=== PATIENT | female | born 1945 | race Hispanic/Latino ===

== ENCOUNTER 2018-12-23 12:41 | Outpatient (CLI) | payer MEDICARE, BC ==
--- NOTE | 2018-12-23 13:49 | Mammography Report ---
BONE DENSITY STUDY: DEFINITIONS: BMD = Bone Mineral Density T-score = BMD related to mean peak bone mass of young adult (mean expressed in Standard Deviation) Z-score = Age matched BMD expressed in SD World Health Organization (WHO) Diagnostic Criteria Normal T-score > -1 SD Osteopenia T-score between -1 and -2.4 SD Osteoporosis T-score -2.5 SD or below FINDINGS: The weighted average BMD of lumbar spine L1-L4 is 0.924 with a T-score of -1.1. The weighted average BMD of hip is 0.710 with a T-score of -1.9. IMPRESSION: The patient's T-score is diagnostic for osteopenia and average relative risk for fracture. NOTE: BMD is not the only risk factor for fracture; also consider factors such as the patient's age, risk of falling, previous osteoporotic fracture, family history of osteoporotic fractures, current smoker, and low body weight. Polanco's triangle is a region of interest in femur, predominantly of trabecular bone. It is not a true anatomic site, and ISCD does not recommend its use clinically.
== END 2018-12-23 12:42 | disposition home or self-care (01) ==
LOC: MAMMO 12:41
PROVIDERS: ATTEND Obstetrics & Gynecology
DX: M81.0 Age-related osteoporosis without current pathological fracture (principal)
CPT/HCPCS: 77080

== ENCOUNTER 2021-03-25 10:47 | Outpatient (CLI) | payer MEDICARE, BC ==
--- NOTE | 2021-03-25 14:41 | Mammography Report ---
DEXA BONE DENSITY SCAN INDICATION / CLINICAL INFORMATION: SCREENNG FOR OSTEO. 75 years Female COMPARISON: 12/23/2018 LUMBAR SPINE, L1-L4: - Bone mineral density (BMD) = 0.916 g/cm2. - T-score = -1.2 - Z-score = 1.4 Change (%) since most recent prior (if available): -0.9% LEFT HIP, TOTAL : - Bone mineral density (BMD) = 0.706 g/cm2. - T-score = -1.9 - Z-score = 0.0 Change (%) since most recent prior (if available): -0.6% IMPRESSION: 1. WHO Classification: Osteopenia. Fracture Risk: Increased. 2. 10 year fracture risk (FRAX). Major osteoporotic fracture risk is 13%, hip fracture risk is 3.5% BMD Reporting Guidelines (ISCD, 2015) BMD Reporting in Postmenopausal Women and in Men Age 50 and Older - T-scores are preferred. - The WHO densitometric classification is applicable. BMD Reporting in Females Prior to Menopause and in Males Younger Than Age 50 - Z-scores, not T-scores, are preferred. This is particularly important in children. - A Z-score of -2.0 or lower is defined as below the expected range for age, and a Z-score above -2.0 is within the expected range for age. - Osteoporosis cannot be diagnosed in men under age 50 on the basis of BMD alone. - The WHO diagnostic criteria may be applied to women in the menopausal transition. http://www.iscd.org/official-positions/7604-pqex-xspmbkpr-positions-adult/ Signer Name: Azul Lopez MD Signed: 03/25/2021 2:36 PM Workstation Name: [id number]
== END 2021-03-25 10:48 | disposition home or self-care (01) ==
LOC: MAMMO 10:47
PROVIDERS: ATTEND Family Medicine
DX: M85.88 Other specified disorders of bone density and structure, other site (principal)
CPT/HCPCS: 77080